=== PATIENT | male | born 1960 | race African-American/Black ===

== ENCOUNTER → 2017-10-03 | Day surgery (SDC) | payer OTHER ==
--- NOTE | 2017-10-02 11:20 | HISTORY & PHYSICAL EXAMINATION ---
DATE OF ADMISSION: 10/02/2017 CHIEF COMPLAINT: Right hip pain. HISTORY OF PRESENT ILLNESS: The patient is a 57-year-old inmate of [facility] who presented to our office for evaluation of bilateral hip pain. X-rays revealed severe osteoarthritis about the bilateral hips with severe bone on bone arthritis, deformity of the femoral head, and cystic changes about the femoral head and acetabulum. Due to the severity of his disease, the only viable treatment option would be hip replacement surgery. PAST MEDICAL HISTORY: Hypertension, DVT x2 with chronic Coumadin use, osteoarthritis. PAST SURGICAL HISTORY: Hernia repair x2, wrist ORIF, intestinal surgery as a child. MEDICATIONS: Calcium plus D 600-400 daily, vitamin B12 injection monthly, lisinopril 10 mg daily, Meloxicam 15 mg daily, vitamin C 1000 mg daily, warfarin 4 mg daily or as directed. ALLERGIES: No known drug allergies. SOCIAL HISTORY AND REVIEW OF SYSTEMS: Noncontributory. PHYSICAL EXAMINATION: GENERAL: Well-nourished, well-developed male who appears his stated age. HEENT: Normocephalic, atraumatic, extraocular movements intact, oropharynx pink and moist. NECK: Supple without adenopathy. LUNGS: Clear to auscultation bilaterally. HEART: Regular rate and rhythm. ABDOMEN: Soft, nontender, nondistended. EXTREMITIES: The upper extremities are within normal limits. Both hips demonstrate limited range of motion. There is limitation of active and passive range of motion with pain. X-RAYS: X-rays were reviewed. He has severe osteoarthritis about the right hip with complete loss of the joint space. There is flattening and deformation of the femoral head. There are large osteophytes about the femoral head and acetabulum. There are cystic changes about the femoral head and acetabulum. ASSESSMENT: Right hip degenerative joint disease. PLAN: Risks versus benefits were discussed. Consent was obtained. His Coumadin will be held prior to the procedure and will be bridged with Lovenox as directed by the [facility]. We will proceed with right total hip arthroplasty as indicated.
[~2017-10-03] VITALS: Ht 175.3 cm; Wt 93.2 kg
[~2017-10-03] MED LIST: ACETAMINOPHEN 500 MG TAB PO SCH; ASCO10003 PO; ATROPINE SULFATE 0.1 MG/ML 5ML SYR IV PRN; BUPIVACAINE 0.5 % 5 MG/1 ML PF 10ML VIAL ONE; CALC500C70 PO; CALC625T PO; CEFAZOLIN 2000MG IV PUSH 15 ML IV SCH; CETI10TA84 PO; CMD4 PO; CYAN100048 IM; CeleBREX 200 MG CAP PO SCH; DEXAMETHASONE 4 MG TAB PO SCH; EpHEDrine SULFATE INJ 50 MG/ML AMP IV PRN; FAMOTIDINE 20 MG TAB PO SCH; GABAPENTIN 900 MG PO SCH; HYDROmorphone INJ 0.5 MG/0.5 ML SYR IV PRN; LACT12CR TOP; LACTATED RINGER'S 1000ML 1,000 ML IV SCH; LACTATED RINGER'S 1000ML 500 ML IV SCH; LIDOCAINE HCL 2% 2 ML VIAL (20MG/ML) ONE; LISI10TA PO; MELO-83 PO; METOCLOPRAMIDE HCL 10 MG TAB PO SCH; MIDAZOLAM HCL 1 MG/ML 2ML VIAL ONE; ONDANSETRON INJ 2 MG/ML 2 ML VIAL IV PRN; PHENYLEPHRINE 100MCG/ML 5ML SYR IV PRN; PROPOFOL IV EMULSION 10 MG/ML 20 ML VIAL ONE; ROPIVACAINE 5MG/ML 30 ML 150 MG, BUPIVACAINE 0.5% MPF INJ 30 ML, EpINEphrine HCL INJ 0.... INFIL SCH; [UNRECOGNIZED DRUG - CODE] TOP
[2017-10-03 10:21] VITALS: BP 156/100; PULSE 77; TEMP 36.7; O2SAT 95; Ht 175.3 cm; Wt 93.2 kg
--- NOTE | 2017-10-03 10:52 | Progress Note ---
Progress Note Date of Service October 03, 2017. Progress Note The patient was on a lovenox bridge and received 40 units at 0730 today. I discussed this with Dr. Louie and offered him a general anesthetic but he refused, preferring to reschedule the case. He cancelled the case.
== END | disposition home or self-care (01) ==
LOC: C.ACU 10:03
DX: M16.11 Unilateral primary osteoarthritis, right hip (principal); Z53.09 Procedure and treatment not carried out because of other contraindication